=== PATIENT | female | born 1995 | race Two or more races ===

== ENCOUNTER 2020-12-17 17:07 | Emergency (ER) | payer BC ==
[~2020-12-17] VITALS: Ht 160 cm; Wt 86.2 kg
[2020-12-17 18:07] LABS: Urine Bacteria MOD /hpf (None Seen); Urine Blood 2+ /uL (Negative); Urine Specific Gravity 1.005 (1.001-1.035); Urine WBC 21 /hpf (0 - 5)
[2020-12-17 20:35] VITALS: BP 131/84
[2020-12-17] MEDS ORDERED: cefTRIAXone SOD 1,000 MG VL IM ONE (22:00)
== END 2020-12-17 22:19 | disposition home or self-care (01) ==
LOC: ER 17:11
DX: N39.0 Urinary tract infection, site not specified (principal); N92.0 Excessive and frequent menstruation with regular cycle
CPT/HCPCS: 76830; 76856; 81001; 81025; 96372; 99284; J0696

== ENCOUNTER 2023-05-26 10:11 | Emergency (ER) | payer BC ==
[~2023-05-26] VITALS: Ht 160 cm; Wt 85.3 kg
[2023-05-26] MEDS ORDERED: HYDR-4902 PO (10:39)
[2023-05-26] MEDS ORDERED: CLIN-203 PO (10:39)
[2023-05-26] MEDS ORDERED: CLINDAMYCIN HCL 150 MG CAP PO ONE (10:45)
[2023-05-26] MEDS ORDERED: HYDROcodone-ACET 5/325MG TAB PO ONE (10:45)
[2023-05-26 11:00] VITALS: BP 119/78; PULSE 120; RESP 20; TEMP 99.7; O2SAT 98
== END 2023-05-26 10:46 | disposition home or self-care (01) ==
LOC: ER 10:11
DX: K04.7 Periapical abscess without sinus (principal); K02.9 Dental caries, unspecified